=== PATIENT | male | born 1975 | race Caucasian/White ===

== ENCOUNTER 2016-10-15 13:13 | Emergency (ER) | payer OTHER ==
[2016-10-15 13:21] VITALS: BP 169/100; PULSE 69; RESP 17; TEMP 97.5; O2SAT 94
--- NOTE | 2016-10-15 15:03 | DX ---
Left Knee, Four Views Indication: Pain. Popping and clicking.. Technique: AP, obliques, and lateral views. Comparison: Left tibia and fibula dated September 24, 2008 Findings: The normally mineralized bones are anatomically aligned. Normally mineralized bones are gabino tomically aligned. Joint spaces are preserved. Tiny spurs emanate off the intercondylar spines and th e superior and inferior pole of the patella. No acute fracture or bone lesion. Moderate effusion. Impression: 1. Moderate knee effusion. 2. Minimal degenerative arthropathy. No fracture or bone lesion.
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
--- NOTE | 2016-10-15 16:14 | MR ---
MRI of the Left Knee Clinical Indications: Knee pain, inability to ambulate. Technique: Fat-suppressed, fast T2-weighted images were acquired axially, sagittally, and coronally. T1-weighted sagittal images were obtained. Findings Medial compartment: Undersurface flap tear extends from the body of the medial meniscus to the poste rior medial corner, with extension to the free edge and toward the periphery at the undersurface, sma ll in size. Tear also involves the superior articular surface of the medial meniscus at the posterior medial corner. Undersurface fraying of the anterior horn of the medial meniscus is present. The post erior horn appears intact. Articular cartilage of the medial compartment is minimally diseased, with mild chondral thinning involving the anterior weightbearing aspect of the medial femoral condyle. Lateral compartment: No meniscal tear or chondral lesion. Patellofemoral compartment: There is a 12 mm focal partial thickness chondral defect involving the l ateral patellar facet superiorly. Anterior and posterior cruciate ligaments are intact. Medial and lateral collateral ligaments are int act. Distal quadriceps and patellar tendons are intact. There is a small knee joint effusion without Brambila's cyst. Impression: 1. Undersurface tear midbody and posterior horn, medial meniscus, with small focal flap at the hearing officer ior medial corner along the undersurface. 2. 12 mm partial-thickness chondral defect lateral patellar facet. 3. Small knee joint effusion. Results called to Ulises Smalls PA-C, at the time of the interpretation.
== END 2016-10-15 16:14 | disposition home or self-care (01) ==
DX: S83.207A Unspecified tear of unspecified meniscus, current injury, left knee, initial encounter (principal); Z87.891 Personal history of nicotine dependence; X58.XXXA Exposure to other specified factors, initial encounter

== ENCOUNTER 2016-11-25 07:53 | Day surgery (SDC) | payer OTHER ==
[~2016-11-25 07:53] MED LIST: CLINDAMYCIN 900 MG/DEXTROSE 50 ML IV ONE; LIDO/BUPIVA 10ML SYR IU ONE; LIDO/BUPIVA/NS 60ML SYR IU ONE
[2016-11-25] MEDS ORDERED: LIDO/BUPIVA 10ML SYR IU ONE (08:00)
[2016-11-25] MEDS ORDERED: LIDOCAINE 1% 2 ML INJ ONE (08:40)
[2016-11-25] MEDS ORDERED: LR 1,000 ML IV ONE (08:43)
[2016-11-25] MEDS ORDERED: LIDOCAINE 1% 5 ML SDV ID PRN (08:43)
[2016-11-25] MEDS ORDERED: MIDAZOLAM 2 MG/2 ML VIAL ONE (10:00)
[2016-11-25] MEDS ORDERED: LIDOCAINE/BUPIVICAINE 10 ML SYR ONE (10:03)
[2016-11-25] MEDS ORDERED: LIDOCAINE/BUP/NS KNEE 60 ML SYR ONE (10:03)
[2016-11-25] MEDS ORDERED: DEXAMETHASONE 4 MG/ML VIAL ONE (10:10)
[2016-11-25] MEDS ORDERED: LIDOCAINE 2% 100 MG/5 ML SYR ONE (10:10)
[2016-11-25] MEDS ORDERED: ONDANSETRON 4 MG/2 ML VIAL ONE (10:10)
[2016-11-25] MEDS ORDERED: ROCURONIUM 50 MG/5 ML VIAL ONE (10:10)
[2016-11-25] MEDS ORDERED: fentaNYL 250 MCG/5 ML INJ ONE (10:11)
[2016-11-25] MEDS ORDERED: PROPOFOL 200 MG/20 ML VIAL ONE ×2 (10:11)
[2016-11-25] MEDS ORDERED: ONDANSETRON DISINTEGRATING 4 MG TAB PO PRN (11:27)
[2016-11-25] MEDS ORDERED: D5W 1/2 NS 1,000 ML IV SCH (11:30)
[2016-11-25] MEDS ORDERED: ACETAMINOPHEN 325 MG TAB PO PRN (11:30)
[2016-11-25] MEDS ORDERED: HYDROCODONE/APAP 5/325 TAB PO PRN (11:30)
--- NOTE | 2016-11-25 11:34 | GOP ---
[f rep st] OPERATIVE REPORT DATE OF OPERATION: 11/25/2016 SURGEON: Praveen Cook MD SAMPLE HAND: Stacia Gallo PA-C (residential assistant) ANESTHESIA: General. PREOPERATIVE DIAGNOSIS: Left knee medial meniscus tear. POSTOPERATIVE DIAGNOSIS: Left knee medial meniscus tear and grade 2 change undersurface of the patella. PROCEDURE PERFORMED: Arthroscopic partial medial meniscectomy and debridement undersurface of the patella (CPT code 55971). ARTHROSCOPIC FINDINGS: 1. Grade 2 changes undersurface of the patella. 2. Normal trochlea. 3. Normal medial femoral condyle. 4. Normal medial tibial plateau. 5. Radial tear of the posteromedial aspect of the meniscus with some complex tearing in the undersurface. 6. Intact ACL. 7. Normal lateral femoral condyle. 8. Normal lateral tibial plateau. 1. Normal lateral meniscus. PATIENT POSITION: Supine. TOURNIQUET TIME: 0 minutes. INDICATIONS: The patient is a 41-year-old, who hurt his left knee while at work. He has had persistent pain and symptoms regarding the knee. Options discussed; he desired to go ahead with an arthroscopic partial medial meniscectomy. He understood the potential risks and benefits, including, but not limited to, bleeding, infection, persistent pain, stiffness, anesthetic risks. He understood these and desired to proceed. DESCRIPTION OF PROCEDURE: The patient was taken to the operating room. After undergoing successful general anesthesia, the left lower extremity was prepped and draped in the usual sterile manner. Anatomic landmarks were identified. The anterolateral and anteromedial portal sites were injected with 0.25% Marcaine and 1% lidocaine. The knee was injected with same. Anterolateral portal was made. The arthroscope was placed in the joint. With the arthroscope in the joint, an anteromedial portal was made. The probe was placed. Findings were as described above. The tear of the meniscus was identified. It was debrided back to a stable base. The area was contoured back. The radial tear was debrided, and the undersurface complex tear was debrided. This was debrided back. Following this, any small debris was flushed out. Next, the undersurface of the patella was debrided as well. This was smoothed down to a stable base as well. The knee was then thoroughly irrigated, and small debris was flushed out. Portal sites closed using 3-0 nylon suture. The knee was injected with 0.25% Marcaine, 1% lidocaine, and 5 mg of Duramorph. The patient had a sterile dressing, followed by the compressive dressing and cryotherapy. The patient was awakened, taken to the recovery room in stable condition. Sponge, instrument, and needle counts were correct. The plan will be for the patient to undergo physical therapy with emphasis on range of motion and strengthening according to protocol, crutches 1- 2 days. Copy requested to: Panchito Wright MD ([phone]) [place], [place] /[id number]/MODL MTDD
== END 2016-11-25 12:30 | disposition home or self-care (01) ==
LOC: FSGY 07:53
PROVIDERS: ATTEND Orthopaedic Surgery Sports Medicine
PROC: 0SBD4ZZ Excision of Left Knee Joint, Percutaneous Endoscopic Approach (ICD-10-PCS; principal; 2016-11-25 09:45)
DX: S83.232A Complex tear of medial meniscus, current injury, left knee, initial encounter (principal); Y99.8 Other external cause status; Y92.89 Other specified places as the place of occurrence of the external cause; X58.XXXA Exposure to other specified factors, initial encounter
CPT/HCPCS: J1100; J2001; J2250; J2405; J2704; J3010

== ENCOUNTER 2018-07-16 22:04 | Observation (INO) | payer OTHER ==
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
[2018-07-16 22:46] LABS: PLATELET COUNT 212 10^3/uL (150-400)
[2018-07-16] MEDS ORDERED: HYDROmorphONE/DILAUDID 1 MG/ML INJ IVP ONE (22:55)
[2018-07-16] MEDS ORDERED: HYDROmorphONE/DILAUDID 2 MG/ML INJ ONE (22:57)
[2018-07-16] MEDS ORDERED: NS 1,000 ML IV ONE (22:58)
[2018-07-16] MEDS ORDERED: ONDANSETRON DISINTEGRATING 4 MG TAB PO PRN (23:12)
[2018-07-16] MEDS ORDERED: ACETAMINOPHEN 325 MG TAB PO PRN (23:12)
[2018-07-16] MEDS ORDERED: ONDANSETRON 4 MG/2 ML VIAL IVP PRN (23:12)
[2018-07-16] MEDS ORDERED: HYDROmorphONE/DILAUDID 1 MG/ML INJ IVP PRN (23:12)
[2018-07-17] MEDS ORDERED: HYDROmorphONE/DILAUDID 1 MG/ML INJ IVP PRN (00:38)
[2018-07-17] MEDS ORDERED: ACETAMINOPHEN 500 MG TAB PO PRN (00:38)
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
[2018-07-17] MEDS ORDERED: traZODone 50 MG TAB PO PRN (00:52)
[2018-07-17] MEDS: HYDROmorphONE/DILAUDID 1 MG/ML INJ IVP PRN ×5 (01:30→08:31)
[2018-07-17 05:03] LABS: PLATELET COUNT 190 10^3/uL (150-400)
[2018-07-17] MEDS: ceFAZolin 2 GM/DEXTROSE 100 ML IV SCH ×2 (05:03→14:45)
--- NOTE | 2018-07-17 08:37 | HOSPPROG ---
Hospitalist Progress Note Assessment/Plan: 42 yo M w/ recent L shoulder surgery presents w concerns of cellulitis. First encounter, chart reviewed. * LUE Cellulitis -had some localized redness, no hardware in place -much improved w IV abx (Cefazolin) -evaluated patient w XU Christie with orthopedics -she will f/u with him closel - Blood cultures pending *pain due to this and recent surgery -start scheduled Naproxen and Alma -dc IV Dilaudid * L shoulder DJD - S/p left Shoulder arthroscopic posterior labral repair and stabilization with additional anterior labral repair, SAD, DCE, biceps tenodesis , debridement of the grade IV changes of GH joint with microfracture of the humeral head on 07/05/[address] Cook. - Acute management as above - Sling, no active ROM w/ biceps for 6 weeks *Plan: Betty will discuss his care w Dr Cook, hopefully can dc later tody; will come back and re-evaluate Subjective: Simon said he has had ongoing pain, not sure if it has worsened, but was concerned about the redness. Objective: Vital Signs Temp Pulse Resp BP Pulse Ox 36.5 C 68 16 147/91 H 95 07/17/18 00:26 07/17/18 00:26 07/17/18 00:26 07/17/18 00:26 07/17/18 00:26 Laboratory Results 07/17/18 04:44 07/17/18 04:44 07/16/18 07/17/18 07/18/18 05:59 05:59 05:59 Intake Total 1100 Balance 1100 - Physical Exam Constitutional: no apparent distress, appears nourished, uncomfortable Eyes: PERRL Ears, Nose, Mouth, Throat: hearing normal Cardiovascular: regular rate and rhythym Respiratory: no respiratory distress Gastrointestinal: normoactive bowel sounds Skin: warm, other (left shoulder on posterior side with some mild warmth, slightly pink) Neurologic: AAOx3 Psychiatric: interacting appropriately ICD10 Worksheet Patient Problems: Problems Problem Status Onset Cellulitis of shoulder Acute - ICD10 Problem Qualifiers (1) Cellulitis of shoulder
[2018-07-17 09:30] VITALS: BP 129/83
[2018-07-17] MEDS: HYDROCODONE/APAP 5/325 TAB PO PRN ×2 (10:33→14:45)
[2018-07-17] MEDS ORDERED: traMADol 50 MG TAB PO PRN (13:37)
[2018-07-17] MEDS ORDERED: NAPROXEN SODIUM 220 MG TAB PO SCH (16:00)
[2018-07-17] MEDS ORDERED: ACETAMINOPHEN/ASA/CAFFEINE 1 EACH TAB PO PRN (16:21)
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
[2018-07-17] MEDS ORDERED: traZODone 50 MG TAB PO SCH (21:00)
--- NOTE | 2018-07-18 20:50 | GCON ---
ORTHOPEDIC CONSULTATION REFERRING PHYSICIAN: SETH Zaragoza REASON FOR CONSULTATION: Left shoulder cellulitis. HISTORY OF PRESENT ILLNESS: The patient is a 42-year-old male who underwent a left shoulder arthrosc opy with anterior and posterior labral repairs, subacromial decompression, distal clavicle excision, biceps tenodesis by Dr. Praveen Cook at the [facility] on July 04, 2018. He did have acute postoperative pain, but this was controlled 2 days following surgery on an outpatient basis. Lisa rodríguez started outpatient physical therapy and was seen in postoperative follow up at [facility], where sutures were removed. Incisions were not erythematous and clean. He can continue the sling f or 5 additional weeks, and follow up with Dr. Cook for postoperative followup at that [facility]. In the interim, this weekend on July 16, he developed erythema over the left shoulder in a generalized fashion, not concentrated to 1 incision site. This was noted by his when he was dis robing to take a shower. He was seen at [facility] for evaluation of presumed cellulitis. Blood cultures and labs were obtained with a slightly elevated white count and concerns for acute cellulitis in a postoperative setting. Was admitted for IV antibiotics and observ ation. A part of his surgical team were asked to consult today. He denies fever, chills, or other f eelings of illness. He had pain following surgery, but it did not localize anywhere specifically to the shoulder. Denies any followup or postoperative irritation. He has been icing constantly since h is surgery. He does admit to using a small layer, such as a T-shirt between his ice machine and his shoulder. Denies any numbness or tingling to his hand or fingers. He has continued to take Tylenol for pain medication, although with recent admission has hadincreased pain and has had IV Dilaudid and is comfortable at this time with the pain controlled at 1/10 [QAMARKER]. He has no complaint with his sling. Denies other constitutional symptoms, nor upset stomach, change in bowel or bladder habi ts, fevers, chills, headache, or other feelings of illness. He is currently not working, recovering at home. 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 He has received Ancef by IV at this time, a nd is responding nicely to it. He feels theerythema has decreased, and pain has decreased significan tly. PHYSICAL EXAMINATION: GENERAL: Well-developed, well-nourished adult male. MUSCULOSKELETAL: On ins pection of the left shoulder, well-healing incisions without erythema or exudate. He does have a sma ll Monocryl suture from his left biceps incision. This was trimmed under clean conditions today. There was a mildly open inferior incision without erythema or exudate. It is moist at the d ependent edge of the incision. The outline around the left posterior shoulder area of previous eryth genna has completely resolved its pain and in color, warmth, and texture at the remaining areas of skin . He is afebrile today. Labs have normalized. White blood cell count has normalized this morning w ith repeat lab. ASSESSMENT AND PLAN: The patient is a 42-year-old male 12 days status post left shoulder arthroscopy with labral repairs, subacromial decompression, clavicle excision, debriding of glenohumeral joint, and biceps tenodesis. He looks to have case of acute cellulitis that is responding DICTATION ENDED /[id number]/MODL
== END 2018-07-17 17:49 | disposition home or self-care, planned readmission (81) ==
LOC: F3N 07-17 00:13
PROVIDERS: ADMIT Student in an Organized Health Care Education/Training Program; ATTEND Internal Medicine
DX: T81.40XA Infection following a procedure, unspecified, initial encounter (principal); M25.512 Pain in left shoulder; M19.012 Primary osteoarthritis, left shoulder; V19.3XXS Pedal cyclist (driver) (passenger) injured in unspecified nontraffic accident, sequela; Z88.0 Allergy status to penicillin; Y99.0 Civilian activity done for income or pay
CPT/HCPCS: 73030; 96361; 96374; 96375; 99285; G0378; J0690; J1170